=== PATIENT | female | born 1965 | race Two or more races ===

== ENCOUNTER 2019-12-26 14:34 | Emergency (ER) | payer SELFPAY ==
[~2019-12-26] VITALS: Ht 172.7 cm; Wt 90.9 kg
--- NOTE | 2019-12-26 14:38 | NUR ---
NO ANSWER IN LOBBY X1
--- NOTE | 2019-12-26 14:57 | NUR ---
JAQUELINE APL FROM THE [facility]. PT WAS SITTING AND BECAME COMBATIVE W/ SECURITY GUARDS AT [facility]. PER SECURITY PT HAD 10 DRINKS. PT STATES SHE HAD 4-5 DRINKS. 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 PT HAD ONE BOUT OF LARGE EMESIS UPON ARRIVAL TO ROOM 1. SRONG ETOH ODOR. PT ASSESSED AND IS NOW SLEEPING ON [employer] HOB 30 DEGREES. MONITORS APPLIED. PT POSITIONED FOR COMFORT.
--- NOTE | 2019-12-26 16:03 | NUR ---
PT SLEEPING ON TRESA. NADN. BURCH.
--- NOTE | 2019-12-26 16:51 | NUR ---
PT RESTING IN [facility]. REQUESTING FOOD. DIET TRAY ORDERED. NADN. BURCH.
--- NOTE | 2019-12-26 17:13 | NUR ---
PT TAKEN TO CT IN STABLE CONDITION.
--- NOTE | 2019-12-26 17:38 | NUR ---
PT RESTING ON [employer]. NADN. BURCH. PROVIDED W/ DINNER TRAY.
--- NOTE | 2019-12-26 18:14 | NUR ---
ERP DR. LAU AT BEDSIDE TO DISCUSS RE-EVAL.
[2019-12-26 18:26] VITALS: BP 118/73
--- NOTE | 2019-12-26 18:27 | NUR ---
PT AOX4. AMBULATORY W/ STEADY GAIT. APOLOGETIC FOR HOW SHE ACTED EARLIER. PT AWARE OF CT RESULTS AND PLAN TO F/U W/ ORTHO MD. PT VERBALIZES UNDERSTANDING. PT PROVIDED W/ SHIRT SHE HAD BOUTS OF EMESIS ON PERSONAL SHIRT.
--- NOTE | 2019-12-26 18:42 | NUR ---
SPOKE W/ RADIOLOGY TO PREPARE CT ON CD FOR PT.
--- NOTE | 2019-12-26 18:53 | NUR ---
REPORT RECEIVED FROM JUSTIN GAUTHIER.
== END 2019-12-26 19:08 | disposition home or self-care (01) ==
LOC: ED 19:00
DX: S42.252A Displaced fracture of greater tuberosity of left humerus, initial encounter for closed fracture (principal); R11.10 Vomiting, unspecified; F10.120 Alcohol abuse with intoxication, uncomplicated; W18.30XA Fall on same level, unspecified, initial encounter; Y93.89 Activity, other specified; Y92.89 Other specified places as the place of occurrence of the external cause; Y99.8 Other external cause status; Y90.9 Presence of alcohol in blood, level not specified
CPT/HCPCS: 71045; 99285